=== PATIENT | female | born 1995 | race American Indian/Alaskan Native ===

== ENCOUNTER 2018-10-06 10:32 | Emergency (ER) | payer OTHER ==
[2018-10-06 11:37] LABS: SQUAMOUS EPITHIAL 35 /hpf (0-5); URINE BACTERIA RARE (<OCC); URINE BILIRUBIN NEGATIVE (NEGATIVE); URINE BLOOD NEGATIVE (NEGATIVE); URINE CLARITY Hazy (Clear); URINE COLOR Yellow (YELLOW); URINE GLUCOSE (UA) NORMAL (Normal); URINE LEUKOCYTE ESTERASE TRACE Leu/uL (Negative); URINE PROTEIN NEGATIVE (NEGATIVE)
[2018-10-06 16:54] VITALS: BP 113/65; PULSE 73; RESP 18; TEMP 98.2; O2SAT 96
== END 2018-10-06 12:00 | disposition home or self-care (01) ==
LOC: C.EROB 10:32
DX: O26.893 Other specified pregnancy related conditions, third trimester (principal); R10.30 Lower abdominal pain, unspecified; Z3A.38 38 weeks gestation of pregnancy

== ENCOUNTER 2018-10-18 18:12 | Inpatient (IN) | payer OTHER ==
[2018-10-18] MEDS ORDERED: Lactated Ringer's 1,000 ML IV ONE (18:42)
[2018-10-18] MEDS ORDERED: Lactated Ringer's 1,000 ML IV SCH (20:00)
[2018-10-18] MEDS ORDERED: Penicillin G 5 Million Unit Vial IVPB ONE ×2 (20:15→20:42)
[2018-10-18 21:57] LABS: BASO % 0.4 % (0.0-2.0); EOS % 0.2 % (0.0-4.0); HEMOGLOBIN 11.9 g/dL (11.0-16.0); LYMPH # 1.8 K/uL (1.0-4.3); LYMPH % 15.5 % (20.0-40.0); MEAN CELL VOLUME 91.2 fL (81.0-99.0); MEAN CORPUSCULAR HEMOGLOBIN 29.5 pg (27.0-31.0); MEAN CORPUSCULAR HGB CONC 32.4 g/dL (33.0-37.0); MEAN PLATELET VOLUME 9.9 fL (7.2-11.7); MONO # 0.8 K/uL (0.0-0.8); MONO % 7.1 % (0.0-10.0); NEUT # 9.2 K/uL (1.8-7.0); NEUT % 76.8 % (50.0-75.0); NRBC % 0.1 % (0.0-2.0); RBC 4.03 Mil/uL (3.80-5.20); RED CELL DISTRIBUTION WIDTH 14.1 % (11.5-14.5); WHITE BLOOD COUNT 11.9 K/uL (4.8-10.8)
--- NOTE | 2018-10-18 22:00 | OBHP ---
Datetime: 10/18/2018 18:44 IP Adm Impression: Postterm, intrauterine ; No Active Labor; Intact Membranes IP Chief Complaint Other: Watery diarrhea/ abdominal pain IP Admit Plan: Admit to unit; Initiate labor induction protocol Admit Comment, IP Provider: Patient is a 23 year old at 40w4d DANIE of 10/14/18 by LMP 018 who presents to the unit for watery diarrhea that started last night. Patient reports having 4 ep isodes of diarrhea, denies any blood in the stool. She also admits to having intermittent abdominal p ain that started last night as well. Denies any fevers/chills, nausea, vomiting, sob, cp, palpitation s, urinary symptoms. Endorses +FM and questionable leakage of fluid. Denies any vaginal bleeding. 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 No fever or chill s NST Reactive. Ocassional contractions No urinary complaints -Will order UA, UDS, and stool ova/parasites -LR bolus -We will observe -Plan discussed with Dr Mcwilliams OB addendum: Patient seen and evaluated at the bedside. Patient is post-dates. We will admit patie nt for induction of labor. Plan: -Admit to unit -CEFM and TOCO -Admission labs: CBC, CMP, T+S, UA, RPR, HIV -LR @ 125cc/hr -GBS: Pen G 5MMU x 1, Pen G 2.5MMU q4H until delivery -Cervidil for Cervical rippening agent -Anesthesia on consult for pain control as needed -Plan discussed with Dr Oj Stephen DO PGY-2 Pelvic Type - PN: Adequate Extremities - PN: Normal Abdomen - PN: Normal Back - PN: Normal Breast - PN: Normal Lungs - PN: Normal Heart - PN: Normal Thyroid - PN: Normal Neurologic - PN: Normal HEENT - PN: Normal General - PN: Normal FHR - Baseline A Provider: 140 Membranes, Provider: Intact Contraction Comments Provider: q3-6 min Comments, ACOG Physical Exam: VSS Gen: AAOx3 CV: RRR Lungs: CTA B/L Ext: No clubbing, cyanosis, edema SVE: 1-2/50/-3 Gestation - Est Wks by US: 40.4 IP Hx Assessment: The History has been Reviewed and is Current EGA AdmitDate IP: 40.4 Vital Signs Provider: Reviewed; Within Normal Limits IP Indication for Induction: Postterm IP Chief Complaint: Maternal discomfort; evaluation; Other NICHD Variability Prov Fetus A: Moderate 6-25bpm NICHD Accel Fetus A IP Provider: 15X15 FHR Category Provider Fetus A: Category I NICHD Decel Fetus A IP Provider: None Dilatation, Provider: 1-2 Effacement, Provider: 50 Station, Provider: -2 Genitourinary Exam: Normal DTRs - PN: Normal
--- NOTE | 2018-10-18 22:04 | OBADHP ---
Datetime: 10/18/2018 18:44 IP Chief Complaint Other: Watery diarrhea/ abdominal pain Admit Comment, IP Provider: Patient is a 23 year old at 40w4d DANIE of 10/14/18 by LMP 018 who presents to the unit for watery diarrhea that started last night. Patient reports having 4 ep isodes of diarrhea, denies any blood in the stool. She also admits to having intermittent abdominal p ain that started last night as well. Denies any fevers/chills, nausea, vomiting, sob, cp, palpitation s, urinary symptoms. Endorses +FM and questionable leakage of fluid. Denies any vaginal bleeding. 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 No fever or chill s Postdates NST Reactive. Ocassional contractions No urinary complaints -Will order UA, UDS, and stool ova/parasites -LR bolus Plan: -Admit to unit for IOL secondary to Postdates -CEFM and TOCO -Admission labs: CBC, CMP, T+S, UA, RPR, HIV -LR @ 125cc/hr -GBS: Pen G 5MMU x 1, Pen G 2.5MMU q4H until delivery -Cervidil for Cervical rippening agent -Anesthesia on consult for pain control as needed Plan discussed with Dr Oj Stephen DO PGY-2 Pelvic Type - PN: Adequate Extremities - PN: Normal Abdomen - PN: Normal Back - PN: Normal Breast - PN: Not Done Lungs - PN: Normal Heart - PN: Normal Thyroid - PN: Normal Neurologic - PN: Normal HEENT - PN: Normal General - PN: Normal FHR - Baseline A Provider: 140 Membranes, Provider: Intact Contraction Comments Provider: q3-6 min Comments, ACOG Physical Exam: VSS Gen: AAOx3 CV: RRR Lungs: CTA B/L Ext: No clubbing, cyanosis, edema SVE: 1-2/50/-3 Gestation - Est Wks by US: 40.4 IP Hx Assessment: The History has been Reviewed and is Current Vital Signs Provider: Reviewed; Within Normal Limits IP Chief Complaint: Maternal discomfort; evaluation; Other NICHD Variability Prov Fetus A: Moderate 6-25bpm NICHD Accel Fetus A IP Provider: 15X15 FHR Category Provider Fetus A: Category I NICHD Decel Fetus A IP Provider: None Dilatation, Provider: 1-2 Effacement, Provider: 50 Station, Provider: -2 Genitourinary Exam: Normal DTRs - PN: Normal EGA AdmitDate IP: 40.4 IP Adm Impression: Postterm, intrauterine ; No Active Labor; Intact Membranes IP Admit Plan: Admit to unit; Initiate labor induction protocol
[2018-10-18 22:14] LABS: SQUAMOUS EPITHIAL 2 /hpf (0-5); URINE BILIRUBIN NEGATIVE (NEGATIVE); URINE BLOOD NEGATIVE (NEGATIVE); URINE CLARITY Clear (Clear); URINE COLOR Yellow (YELLOW); URINE GLUCOSE (UA) NORMAL (Normal); URINE LEUKOCYTE ESTERASE NEG Leu/uL (Negative); URINE PROTEIN NEGATIVE (NEGATIVE)
[2018-10-18 22:27] LABS: BARBITURATES, UR NEGATIVE (NEGATIVE); BENZODIAZEPINES, UR NEGATIVE (NEGATIVE); OPIATES, UR NEGATIVE (NEGATIVE); PHENCYCLIDINE, UR NEGATIVE (NEGATIVE)
--- NOTE | 2018-10-18 23:00 | OBPN ---
Datetime: 10/18/2018 18:44 IP Progress Impression: Reassuring heart rate IP Informed Consent Obtain: Vaginal Delivery IP Procedures: Sterile Vag Exam IP Progress Plan: Induction; Cervical Ripening; Antibiotic therapy Membranes, Provider: Intact Contraction Comments Provider: q3-6 min FHR - Baseline A Provider: 140 Gestation - Est Wks by US: 40.4 Presentation-Admit: Vertex IP Progress Note Comment: Pt seen and examined. No c/o's VSS. Afebrile No more diarrhea and hundry and eat dinner FHT's reassuring Ocassional donctractions Cervidil placed with ease Anticipate vaginal delivery Vital Signs Provider: Reviewed; Within Normal Limits NICHD Accel Fetus A IP Provider: 15X15 FHR Category Provider Fetus A: Category I NICHD Variability Prov Fetus A: Moderate 6-25bpm Dilatation, Provider: 1-2 Effacement, Provider: 50 Station, Provider: -2 NICHD Decel Fetus A IP Provider: None
[2018-10-19] MEDS ORDERED: Nalbuphine HCL 10 mg/ml Ampule IVP ONE (04:39)
[2018-10-19] MEDS ORDERED: Fentanyl/Bupivacaine HCl 250 ML EPI ONE (09:28)
[2018-10-19] MEDS ORDERED: Oxytocin 30 UNIT 30 UNITS/500 ML BAG IV SCH (10:30)
[2018-10-19] MEDS ORDERED: Oxytocin 30 UNIT 30 UNITS/500 ML BAG IV ONE (10:53)
[2018-10-19] MEDS ORDERED: Oxycodone/Acetaminophen 5/325 mg Tab PO PRN (12:38)
[2018-10-19] MEDS ORDERED: Benzocaine/Menthol 20%-0.5% Topical Spray (60 ml) TOP PRN (13:00)
[2018-10-19] MEDS ORDERED: Phytonadione 1 mg/0.5 ml Inj (Neonatal) ONE (13:03)
[2018-10-19] MEDS ORDERED: Erythromycin 0.5% Ophth Oint 1 APPLIC/3.5 G ONE (13:03)
--- NOTE | 2018-10-19 13:16 | OBPN ---
Datetime: 10/19/2018 10:55 IP Progress Impression: Normal progression of labor IP Informed Consent Obtain: Vaginal Delivery; Induction of Labor IP Procedures: Sterile Vag Exam IP Progress Plan: Continue present management; Anticipate Vaginal Delivery Contraction Comments Provider: q2-3min FHR - Baseline A Provider: 130 IP Progress Note Comment: Patient seen and examined at bedside. Patient is s/p epidural on pitocin a t 1MU. She is resting comfortably at this time. VS: BP 100/55 HR 73 SVE: /0 EFM: 130bpm, moderate variability, +accels, -decels TOCO: q2-3min A/P: Patient is a 23 year old at 40w5d in active labor at this time after cervidil IOL -Stable, afebrile -Category I tracing -GBS positive: continue Pen G 2.5MMU q4H until delivery - 3 doses total -Continue present management -Anticipate vaginal delivery -Plan discussed with Dr Oj Stephen DO PGY-2 Vital Signs Provider: Reviewed; Within Normal Limits NICHD Accel Fetus A IP Provider: 15X15 FHR Category Provider Fetus A: Category I NICHD Variability Prov Fetus A: Moderate 6-25bpm Dilatation, Provider: 9 Effacement, Provider: 90 Station, Provider: 0 NICHD Decel Fetus A IP Provider: None
[2018-10-20 08:26] LABS: BASO % 0.2 % (0.0-2.0); EOS % 0.3 % (0.0-4.0); HEMOGLOBIN 11.4 g/dL (11.0-16.0); LYMPH # 1.4 K/uL (1.0-4.3); LYMPH % 11.9 % (20.0-40.0); MEAN CELL VOLUME 91.7 fL (81.0-99.0); MEAN CORPUSCULAR HEMOGLOBIN 29.8 pg (27.0-31.0); MEAN CORPUSCULAR HGB CONC 32.5 g/dL (33.0-37.0); MEAN PLATELET VOLUME 9.6 fL (7.2-11.7); MONO # 0.6 K/uL (0.0-0.8); MONO % 4.6 % (0.0-10.0); NRBC % 0.1 % (0.0-2.0); RBC 3.81 Mil/uL (3.80-5.20); RED CELL DISTRIBUTION WIDTH 14.1 % (11.5-14.5)
[2018-10-20 17:08] VITALS: O2SAT 99
--- NOTE | 2018-10-20 17:33 | OBPPN ---
Datetime: 10/20/2018 10:41 PP Pain Prov: Within normal limits PP Nausea Prov: Denies PP Flatus Prov: No PP BM Prov: No PP Breasts Prov: Normal PP Heart Prov: Normal PP Lungs Prov: Normal PP Abdomen/Uterus Prov: Normal PP Lochia Prov: Normal PP Vulva/Perineum Prov: Normal PP CVA Tenderness Prov: Normal PP Extremities Prov: Normal PP C/S Incision Prov: Not Applicable PP Progress Prov: Not Applicable PP Comments Phys Exam Prov: Abdomen: Obese. Soft. Fundus firm, mobile, minimally tender, at umbilicu s. Mild lochia rubra. Attending Note: patient seen and evaluated by me with the Residnet at approximately 120 Extremities: no calf tenderness All other systems reviewed and are negative PP Impression Prov: Normal progression PP Plan Prov: Continue present management PP Progress Note Prov: Aleks Duenas DO, PGY-1 PPM Progress Note for Dr. Daily Ms. Vaughn was seen and examined at bedside this AM. She reports feeling well and is tolerating re gular diet well without nausea/vomiting. She reports intermittent, burning abdominal pain at site of stitches that is well controlled. She denies vaginal bleeding or discharge. She reports she is bottle feeding currently but would like to start breast feeding. Attending Note: patient seen and evaluated by me with the Resident at approximately 1200 hours. I agree withthe above as documented - PPD#1 H/H 11.4/34.9. Rh (+) Assessment: PPD#1, 23 y.o. P2, S/P . Afebrile, vital signs stable. H/H stable. Patient is clini rob stable Plan: 1) continue post management 2) consultation 3) Anticipate discharge home 10/21/18 IP PP Procedures: None Vital Signs Provider PP: Reviewed; Within Normal Limits
[2018-10-21 08:18] VITALS: BP 105/66; PULSE 82; RESP 20; TEMP 98
--- NOTE | 2018-10-21 11:01 | OBDCSUM ---
Datetime: 10/21/2018 10:55 Discharged to, Provider: Home Disch Instr Activity: Normal activity Disch Instr Diet: Regular Discharge Instructions, Provider: Routine instructions given Discharge Diagnosis, Provider: Term Delivered Discharge Time: 10/21/2018 10:55 Disch Referrals: None Contraception discussed, Prov: No Discharge Comment, Provider: DOING WELL. NO COMPLAINTS. TOLERATING PO DIET, AMBULATING, +FM,+FLATUS . VSS: AFEBRILE HGB: 11.4 [id number] S/P PPD#2 - DISCHARGE HOME
[2018-10-21] MEDS ORDERED: Influenza Virus Vaccine 45 mcg/0.5 ml Syr (36 months - 7 yrs) IM ONE (13:55)
[2018-10-21] MEDS ORDERED: Influenza Vaccine 60 MCG/0.5 ML SYR (3 yr & up) IM ONE (14:01)
--- NOTE | 2018-10-26 07:21 | OBDS ---
DELIVERY PERSONNEL Delivery Doctor: Vesna Mcwilliams DO Nuclear Supervising Operator: Kathrine Brunner RN MATERNAL INFORMATION Delivery Anesthesia: Epidural Medications in Delivery: Pitocin Estimated Blood Loss (ml): 200 Placenta Cultured: No Maternal Complications: None RN Comments: IUP 40.5 with live baby girl born @ 1220 Provider Comments: of viable female from SUBHA position over an intact perineum. APGARS 9 and 9. weight 6lbs 1oz. Cord blood and cord pH obtained and sent. Placenta sent to pathology. EBL 200cc. Small left periurethral laceration repaired with 3-0 chromic. Patient and both tolerated the procedure well and are recovering in stable condition. Dr Mcwilliams present for entire delivery. Martha Stephen DO PGY-2 LABOR SUMMARY EDC: 10/14/2018 00:00 No. Babies in Womb: 1 Attempted: No Labor Anesthesia: Epidural LABOR INFORMATION Reason for Induction: Postterm Onset of Labor: 10/19/2018 04:30 Cervical Ripening Agents: Cervidil (Annotations: 10mg inserted vaginally by ) Oxytocin: Augmentation Group B Beta Strep: Positive Antibiotics # of Doses: 2 Antibiotics Time of Last Dose: 0940 Steroids Given: None Reason Steroids Not Administered: Not Applicable MEMBRANES Membranes Rupture Method: Artificial Rupture of Membranes: 10/19/2018 11:55 Length of Rupture (hrs): 0.42 Amniotic Fluid Color: clear Amniotic Fluid Amount: Moderate STAGES OF LABOR Stage 3 hrs: 0 Stage 3 min: 5 Total Time in Labor hrs: 7 Total Time in Labor min: 55 VAGINAL DELIVERY Episiotomy: None Laceration Extension: N/A Laceration Type: Periurethral Other Laceration: left periuretheral Laceration Repair: Yes Laceration Repair Note: 3-0 chromic utilized to repair without complications. (Annotations: Data sto red by CPN on behalf of user) Initial Vag Sponge Count: 10 Final Vag Sponge Count: 10 Initial Vag Sharps Count: 1 Final Vag Sharps Count: 1 Sponge Count Correct: Yes; Vaginal Sweep Performed Sharps Count Correct: Yes BABY A INFORMATION Infant Delivery Date/Time: 10/19/2018 12:20 Method of Delivery: Vaginal Born in Route : No : N/A Forceps: N/A Vacuum Extraction: N/A Shoulder Dystocia : No SHOULDER DYSTOCIA BABY A Delivery Date/Time: 10/19/2018 12:20 PRESENTATION/POSITION BABY A Presentation: Cephalic Cephalic Presentation: Vertex Vertex Position: Left Occipital Anterior Breech Presentation: N/A PLACENTA INFORMATION BABY A Placenta Delivery Time : 10/19/2018 12:25 Placenta Method of Delivery: Spontaneous Placenta Status: Delivered SCORES BABY A Heart Rate 1 min: >100 bpm Resp Effort 1 min: Good Cry Reflex Irritability 1 min: Cough or Sneeze or Pulls Away Muscle Tone 1 min: Active Motion Color 1 min: Blue/Pale SCORE 1 MIN: 8 Heart Rate 5 min: >100 bpm Resp Effort 5 min: Good Cry Reflex Irritability 5 min: Cough or Sneeze or Pulls Away Muscle Tone 5 min: Active Motion Color 5 min: Body [place], Extremities Blue SCORE 5 MIN: 9 INFANT INFORMATION BABY A Gestational Age at Delivery: 40.5 Gestational Status: Post-term Infant Outcome : Liveborn Condition : Fair Sex: Female IDENTIFICATION/MEDS BABY A ID Band Number: [id number] Sensor Number: [id number] WEIGHT/LENGTH BABY A Birthweight (gms): 2750 Infant Weight (lb): 6 Weight (oz): 1 Length Inches: 18.25 Infant Length cms: 46.4 CORD INFORMATION BABY A No. Cord Vessels: 3 Nuchal Cord : N/A Cord Blood Taken: No Infant Suction: Mouth; Nose ASSESSMENT BABY A Infant Complications: None Infant Complications Other: color pale , pulse ox 50%. Blow by given Dr Lopez called to bedside . 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 Bonilla Transferred To: Remains with Mother
== END 2018-10-21 16:40 | disposition home or self-care (01) | DRG 469 ==
LOC: C.EROB 18:12 → C.4D 19:49 → C.4M 10-19 20:02
PROVIDERS: ADMIT Obstetrics & Gynecology; ATTEND Obstetrics & Gynecology
PROC: 10E0XZZ Delivery of Products of Conception, External Approach (ICD-10-PCS; principal; 2018-10-19)
PROC: 10907ZC Drainage of Amniotic Fluid, Therapeutic from Products of Conception, Via Natural or Artificial Opening (ICD-10-PCS; 2018-10-19)
PROC: 0UQMXZZ Repair Vulva, External Approach (ICD-10-PCS; 2018-10-19)
DX: O99.89 Other specified diseases and conditions complicating pregnancy, childbirth and the puerperium (principal); R19.7 Diarrhea, unspecified; Z3A.40 40 weeks gestation of pregnancy; Z37.0 Single live birth; Z82.49 Family history of ischemic heart disease and other diseases of the circulatory system; O71.82 Other specified trauma to perineum and vulva